=== PATIENT | female | born 1970 | race Two or more races ===

== ENCOUNTER 2020-11-01 04:24 | Day surgery (SDC) | payer BC ==
[2020-10-31 14:03] VITALS: BMI 33.6
[2020-11-01] MEDS ORDERED: MIDAZOLAM HCL 2 MG/2 ML SINGLE DOSE VIAL ONE (09:28)
[2020-11-01] MEDS ORDERED: fentaNYL CITRATE 250 MCG/5 ML VIAL ONE (09:28)
[2020-11-01] MEDS ORDERED: BUPIVACAINE HCL/PF 0.5% (5MG/ML) 10 ML VIAL IJ ONE (10:25)
[2020-11-01] MEDS ORDERED: ONDANSETRON 4 MG/2 ML VIAL IVPUSH PRN (12:08)
[2020-11-01] MEDS ORDERED: oxyCODONE HCL 5 MG TABLET PO PRN ×2 (12:08)
[2020-11-01] MEDS ORDERED: LACTATED RINGERS SOLUTION 1,000 ML IV SCH (12:15)
[2020-11-01 16:41] VITALS: BP 116/64; PULSE 72; TEMP 97.1
== END 2020-11-01 16:50 | disposition home or self-care (01) ==
LOC: JASU-SURG 04:24
PROVIDERS: ATTEND Surgery
PROC: 0FT44ZZ Resection of Gallbladder, Percutaneous Endoscopic Approach (ICD-10-PCS; principal; 2020-11-01 09:00)
DX: K80.10 Calculus of gallbladder with chronic cholecystitis without obstruction (principal)
CPT/HCPCS: 88304-TC; 94760